=== PATIENT | male | born 1985 | race Caucasian/White ===

== ENCOUNTER 2023-03-16 13:08 | Emergency (ER) | payer SELFPAY ==
[~2023-03-16] VITALS: Ht 170.2 cm; Wt 82.0 kg
[2023-03-16 13:31] VITALS: TEMP 98.5; O2SAT 98
[2023-03-16 15:00] VITALS: BP 138/86; PULSE 80; RESP 16
[2023-03-16] MEDS ORDERED: DIPHENHYDRAMINE 50MG/ML VIAL IM PRN (15:00)
[2023-03-16] MEDS ORDERED: KETOROLAC 30MG/ML VIAL IM ONE (15:00)
[2023-03-16 15:53] LABS: BASOPHILS % 0.5 % (0.0-2.0); EOSINOPHILS % 4.8 % (0.0-5.0); HEMATOCRIT. 42.9 % (42.0-52.0); HEMOGLOBIN. 14.7 g/dL (14.0-18.0); LYMPHOCYTES % 18.4 % (20.0-50.0); MEAN CORPUSCULAR HEMOGLOBIN 31.3 pg (28.0-32.0); MEAN CORPUSCULAR HGB CONC 34.4 g/dL (31.0-37.0); MEAN PLATELET VOLUME 7.8 fl (7.4-10.4); MONOCYTES % 7.9 % (2.0-8.0); NEUTROPHILS % 68.4 % (40.0-76.0); PLATELET 269 x1000/uL (130-400); RED BLOOD CELL COUNT 4.71 mill/uL (4.7-6.1); RED CELL DISTRIBUTION WIDTH 12.6 % (11.6-14.6); WHITE BLOOD COUNT 7.4 x1000/uL (4.5-11.0)
[2023-03-16 16:01] LABS: CHLORIDE 105 mEq/L (98-107); INDEX HEMOLYSI 2 (1-3); INDEX ICTERIC 1 (1-4); INDEX LIPEMIC 1 (1-3); POTASSIUM 3.9 mEq/L (3.5-5.1); SODIUM 138 mEq/L (136-145)
[2023-03-16 16:12] LABS: ALANINE AMINOTRANSFERASE 98 IU/L (13-61); ASPARTATE AMINOTRANSFERASE 44 IU/L (15-37); BILIRUBIN TOTAL 0.3 mg/dL (0.1-1.0); CALCIUM 8.7 mg/dL (8.5-10.1); CARBON DIOXIDE 28 mEq/L (21-32); CREATININE 0.7 mg/dL (0.6-1.3); GLUCOSE 112 mg/dL (70-105); PROTEIN TOTAL 7.8 g/dL (6.0-8.3); UREA NITROGEN BLOOD 10 mg/dL (7-21)
[2023-03-16 16:45] LABS: ERYTHROCYTE SEDIMENTATION RATE 8 mm/hr (0-15)
[2023-03-16] MEDS ORDERED: AMOX1TAB16 MT (16:54)
[2023-03-16] MEDS ORDERED: SULF1TAB48 MT (16:54)
== END 2023-03-16 17:41 | disposition home or self-care (01) ==
LOC: ER 13:08
DX: L03.213 Periorbital cellulitis (principal)
CPT/HCPCS: 80053; 85025; 85651; 36415; 70480; 96372; 99285; J1200; J1885; Z7610 ×2

== ENCOUNTER 2023-09-16 00:26 | Emergency (ER) | payer SELFPAY ==
[~2023-09-16] VITALS: Ht 167.6 cm; Wt 74.0 kg
[~2023-09-16 00:26] MED LIST: AMOX1TAB16 MT; SULF1TAB48 MT
[2023-09-16 00:37] VITALS: O2SAT 100
[2023-09-16 00:57] VITALS: TEMP 98.8
[2023-09-16] MEDS: ONDANSETRON HCL 4MG/2ML INJ IV STA (01:15)
[2023-09-16] MEDS: SODIUM CHLORIDE 0.9% 1,000 ML IV ONE (01:15)
[2023-09-16] MEDS: LORAZEPAM 2MG/ML INJ IV STA (01:15)
[2023-09-16 01:24] LABS: BASOPHILS % 0.3 % (0.0-2.0); EOSINOPHILS % 0.2 % (0.0-5.0); HEMATOCRIT. 42.8 % (42.0-52.0); HEMOGLOBIN. 14.9 g/dL (14.0-18.0); LYMPHOCYTES % 13.3 % (20.0-50.0); MEAN CORPUSCULAR HEMOGLOBIN 31.6 pg (28.0-32.0); MEAN CORPUSCULAR HGB CONC 34.8 g/dL (31.0-37.0); MEAN CORPUSCULAR VOLUME 90.8 fL (80.0-94.0); MEAN PLATELET VOLUME 7.9 fl (7.4-10.4); MONOCYTES % 6.4 % (2.0-8.0); NEUTROPHILS % 79.8 % (40.0-76.0); PLATELET 292 x1000/uL (130-400); RED BLOOD CELL COUNT 4.72 mill/uL (4.7-6.1); RED CELL DISTRIBUTION WIDTH 12.9 % (11.6-14.6); WHITE BLOOD COUNT 6.7 x1000/uL (4.5-11.0)
[2023-09-16 01:33] LABS: ACETAMINOPHEN < 2 ug/mL (10-30); ALANINE AMINOTRANSFERASE 63 IU/L (10-49); ALBUMIN 5.2 g/dL (3.2-4.8); ASPARTATE AMINOTRANSFERASE 28 IU/L (<34); BILIRUBIN TOTAL 0.3 mg/dL (0.1-1.0); CALCIUM 9.4 mg/dL (8.7-10.4); CARBON DIOXIDE 25 mEq/L (21-32); CHLORIDE 105 mEq/L (98-107); CREATININE 0.8 mg/dL (0.6-1.3); ETHANOL BLOOD 68 mg/dL (<10); GLUCOSE 134 mg/dL (70-105); POTASSIUM 3.5 mEq/L (3.5-5.1); PROTEIN TOTAL 8.6 g/dL (6.0-8.3); SODIUM 139 mEq/L (136-145); UREA NITROGEN BLOOD 8 mg/dL (9-23)
[2023-09-16 03:45] LABS: CLARITY URINE CLEAR (CLEAR); COLOR URINE YELLOW (YELLOW); GLUCOSE URINE NEGATIVE (NEGATIVE); KETONES URINE NEGATIVE (NEGATIVE); LEUKOCYTE ESTERASE URINE NEGATIVE (NEGATIVE); NITRITE URINE NEGATIVE (NEGATIVE); OCCULT BLOOD URINE NEGATIVE (NEGATIVE); PH URINE 7.5 (4.5-8.0); PROTEIN URINE NEGATIVE (NEGATIVE); SPECIFIC GRAVITY URINE 1.012 (1.005-1.030); UROBILINOGEN URINE 0.2 E.U./dL (0.2-1.0)
[2023-09-16 03:52] LABS: *AMPHETAMINES SCREEN URINE PRESUMPTIVE POSITIVE (NEGATIVE); *BARBITURATES SCREEN URINE NEGATIVE (NEGATIVE); *BENZODIAZEPINES SCREEN URINE NEGATIVE (NEGATIVE); *COCAINE SCREEN URINE NEGATIVE (NEGATIVE); CANNABINOID URINE SCREEN PRESUMPTIVE POSITIVE (NEGATIVE); ECSTASY MDMA SCREEN URINE NEGATIVE (NEGATIVE); METHADONE URINE SCREEN Neg (NEGATIVE); OPIATES URINE SCREEN NEGATIVE (NEGATIVE); PHENCYCLIDINE URINE SCREEN NEGATIVE (NEGATIVE)
[2023-09-16 03:57] VITALS: BP 141/91; PULSE 101; RESP 17
== END 2023-09-16 04:00 | disposition home or self-care (01) ==
LOC: ER 00:26
DX: T50.901A Poisoning by unspecified drugs, medicaments and biological substances, accidental (unintentional), initial encounter (principal); F19.10 Other psychoactive substance abuse, uncomplicated; Y92.89 Other specified places as the place of occurrence of the external cause
CPT/HCPCS: 80053; 80305; 81003; 80307; 80329; 80320; 83690; 85025; 36415; 96361; 96374; 96375; 99284; J2060; J2405; J7030; Z7610 ×4; G0480